=== PATIENT | male | born 1960 ===

== ENCOUNTER 2023-09-14 11:29 | Outpatient (CLI) | payer MEDICAID | END 2023-09-14 23:59 | disposition home or self-care (01) | LOC: RAD 11:29 | PROVIDERS: ATTEND Physician Assistant | DX: D17.0 Benign lipomatous neoplasm of skin and subcutaneous tissue of head, face and neck (principal); M47.816 Spondylosis without myelopathy or radiculopathy, lumbar region; M43.16 Spondylolisthesis, lumbar region; M25.78 Osteophyte, vertebrae; M54.41 Lumbago with sciatica, right side | CPT/HCPCS: 72110; 76881 ==